=== PATIENT | female | born 1980 ===

== ENCOUNTER 2023-09-07 06:33 | Day surgery (SDC) | payer OTHER ==
[2023-09-01 10:59] LABS: PH,URINE 6.5 (5.0-8.0); URINE APPEARANCE Clear; URINE BILIRRUBIN Negative (NEGATIVE); URINE BLOOD Negative; URINE COLOR Yellow; URINE GLUCOSE Negative (NEGATIVE); URINE LEUKOCYTE Negative; URINE NITRATE Negative; URINE PROTEIN Negative (NEGATIVE); URINE UROBILINOGEN 0.2 E.U./dl
[2023-09-01 11:03] LABS: URINE BACTERIA 106.9 uL (0.0-1933); URINE EPITHELIAL CELLS 2.3 uL (0.0-38.8); URINE WBC 2.7 uL (0.0-23.2)
[2023-09-01 11:05] LABS: URINE RBC 1.8 uL (0.0-20.8)
[2023-09-01 11:08] LABS: HEMATOCRIT 33.3 % (36.0-45.00); HEMOGLOBIN 10.6 g/dL (12.0-15.00); MEAN CELL VOLUME 72.3 fL (80.00-100.00); MEAN CORPUSCULAR HEMOGLOBIN 23.1 pg (27.00-32.0); MEAN CORPUSCULAR HGB CONC 31.9 g/dl (32.0-36.0); PLATELET COUNT 351 K/uL (150-450); RED BLOOD COUNT 4.61 M/uL (4.00-6.00); RED CELL DISTRIBUTION WIDTH 18.3 % (11.5-14.5)
[2023-09-01 11:29] LABS: INR 1.04; PARTIAL THROMBOPLASTIN TIME 28.9 SECONDS (22.0-34.0); PROTHROMBIN TIME 10.9 SECONDS (9.0-11.5)
[2023-09-01 11:44] LABS: ALBUMIN 3.9 gm/dL (3.4-5.0); BILIRUBIN TOTAL 0.73 mg/dL (0.3-1.2); CALCIUM 9.4 mg/dL (8.5-10.1); CREATININE SERUM 0.68 mg/dL (0.55-1.02); GFR 93.99; GLOBULINA 4.4 G/DL (2.4-3.5); POTASSIUM 4.51 mEq/L (3.5-5.1); TOTAL PROTEIN 8.3 gm/dL (6.4-8.2); TSH 1.08 uIU/mL (0.358-3.74)
[2023-09-07] MEDS ORDERED: MORGIDOX100 MG PO (09:35)
[2023-09-07] MEDS ORDERED: NAPR500T14 PO (09:35)
== END 2023-09-07 13:30 | disposition home or self-care (01) ==
LOC: CIR.AMB 06:33
PROVIDERS: ATTEND Obstetrics & Gynecology
DX: D25.0 Submucous leiomyoma of uterus (principal); N84.0 Polyp of corpus uteri; N91.0 Primary amenorrhea; I10 Essential (primary) hypertension; Z20.822 Contact with and (suspected) exposure to COVID-19